=== PATIENT | male | born 1955 | race Caucasian/White ===

== ENCOUNTER 2017-04-19 09:16 | Outpatient (RCR) | payer OTHER ==
[~2017-04-19 09:16] MED LIST: ASPIRIN 81M81 MG/TA2 PO; BRILINTA90 MG PO; IMDUR 60MG60 MG/TAB PO; LIPITOR 80MG80 MG PO; LOPRESSOR 225 MG/TAB PO; NITROQUICK0.4 MG SL; ZOCOR 20MG20 MG PO
== END 2017-04-28 09:24 | disposition still patient (30) ==
LOC: WSOH 09:16
DX: S67.193A Crushing injury of left middle finger, initial encounter (principal); S61.213A Laceration without foreign body of left middle finger without damage to nail, initial encounter; W31.89XA Contact with other specified machinery, initial encounter; Y99.0 Civilian activity done for income or pay; Z95.5 Presence of coronary angioplasty implant and graft